=== PATIENT | female | born 1980 | race African-American/Black ===

== ENCOUNTER 2017-05-30 12:22 | Emergency (ER) | payer MEDICAID, SELFPAY ==
[~2017-05-30] VITALS: Ht 172.7 cm; Wt 126.3 kg
[2017-05-30] MEDS ORDERED: SODIUM CHLORIDE 0.9% 1,000ML IVBOLUS ONE (13:00)
[2017-05-30 13:23] LABS: HEMATOCRIT 27.5 % (34.6-47.8); HEMOGLOBIN 8.6 g/dL (11.7-16.4); WHITE BLOOD COUNT 3.5 x10^3/uL (3.4-10)
[2017-05-30 13:26] LABS: RAPID INFLUENZA A Negative (Negative); RAPID INFLUENZA B Negative (Negative)
[2017-05-30 13:33] LABS: BLOOD UREA NITROGEN 8 mg/dL (7-18)
[2017-05-30] MEDS ORDERED: POTASSIUM CHLORIDE 20 MEQ TAB.ER.PRT ONE (14:30)
[2017-05-30] MEDS ORDERED: POTASSIUM CHLORIDE 20 MEQ TAB.ER.PRT PO ONE (14:30)
[2017-05-30 15:20] VITALS: BP 124/74
== END 2017-05-30 15:36 | disposition home or self-care (01) ==
LOC: ED 14:03
DX: B34.9 Viral infection, unspecified (principal); D50.9 Iron deficiency anemia, unspecified; E87.6 Hypokalemia
CPT/HCPCS: 36415; 71020; 80048; 82040; 85025; 87400; 93005; 96360; 96361; 99285; J7030

== ENCOUNTER 2017-11-06 10:39 | Emergency (ER) | payer MEDICAID ==
[~2017-11-06] VITALS: Ht 172.7 cm; Wt 113.9 kg
[2017-11-06] MEDS ORDERED: SODIUM CHLORIDE FLUSH 10ML SYR IVF ONE (11:30)
[2017-11-06] MEDS ORDERED: SODIUM CHLORIDE 0.9% 1,000ML IV ONE (11:30)
[2017-11-06] MEDS ORDERED: ONDANSETRON ODT 4 MG PO ONE (11:30)
[2017-11-06 12:00] LABS: ALANINE AMINOTRANSFERASE 22 U/L (12-78); ALBUMIN 3.6 g/dL (3.4-5.0); ANION GAP 8 mmol/L (5-15); CALCIUM 8.8 mg/dL (8.5-10.1); CHLORIDE 108 mmol/L (98-107); CREATININE 1.01 mg/dL (0.55-1.02)
[2017-11-06 12:02] LABS: ALKALINE PHOSPHATASE 83 U/L (45-117); BILIRUBIN,TOTAL 0.5 mg/dL (0.2-1.0); TOTAL PROTEIN 8.1 g/dL (6.4-8.2)
[2017-11-06 12:04] LABS: CULTURE INDICATED? YES; MICROSCOPIC INDICATED
[2017-11-06] MEDS ORDERED: MORPHINE SULFATE 4 MG/ML, 1ML ONE ×2 (12:04→12:45)
[2017-11-06] MEDS ORDERED: ONDANSETRON ODT 4 MG ONE (12:04)
[2017-11-06 12:13] LABS: MEAN CORPUSCULAR HEMOGLOBIN 19.6 pg (27.0-34.8); MEAN CORPUSCULAR HGB CONC 30.9 g/dL (32.4-35.8); MEAN CORPUSCULAR VOLUME 63.3 fL (80-100); MEAN PLATELET VOLUME 9.4 fL (7.4-10.4); PLATELET COUNT 422 x10^3/uL (130-400); RED BLOOD COUNT 4.67 x10^6/uL (3.82-5.3); RED CELL DISTRIBUTION WIDTH 19.5 % (9.6-15.2)
[2017-11-06] MEDS: MORPHINE SULFATE 4 MG/ML, 1ML IVPush PRN ×2 (12:14→12:47)
[2017-11-06 12:15] LABS: MD YES
[2017-11-06 12:17] LABS: EOS#(MANUAL) 0.06 x10^3/uL (0.0-0.4); EOS% (MANUAL) 1 % (1-7); LYMPHS% (MANUAL) 31 % (22-44); MONOS#(MANUAL) 0.17 x10^3/uL (0.3-2.7); MONOS% (MANUAL) 3 % (2-9); SEG#(MANUAL) 3.77 x10^3/uL (1.8-6.8); SEGS% (MANUAL) 65 % (42-75)
[2017-11-06 12:18] LABS: <PLATELET ESTIMATE> INCREASED; <PLT MORPHOLOGY> NORMAL PLT MORPH; ANISOCYTOSIS 1+; MICROCYTOSIS 2+; POLYCHROMASIA 1+
[2017-11-06] MEDS ORDERED: CEFTRIAXONE 1,000 MG IM ONE (14:00)
[2017-11-06] MEDS ORDERED: POTASSIUM CHLORIDE 20 MEQ TAB.ER.PRT PO ONE (14:00)
[2017-11-06] MEDS ORDERED: POTASSIUM CHLORIDE 20 MEQ TAB.ER.PRT ONE (14:07)
[2017-11-06] MEDS ORDERED: CEFTRIAXONE PMX 1GM/50ML 50 ML ONE (14:07)
[2017-11-06 14:12] VITALS: BP 117/78
== END 2017-11-06 15:12 | disposition home or self-care (01) ==
LOC: ED 14:42
DX: N10 Acute pyelonephritis (principal); D50.9 Iron deficiency anemia, unspecified; Z90.49 Acquired absence of other specified parts of digestive tract
CPT/HCPCS: 36415; 74176; 80053; 81001; 83605; 83690; 85025; 87086; 96361; 96372; 96374; 96376; 99285; J0696; J7030; Q0162

== ENCOUNTER 2018-03-30 18:11 | Emergency (ER) | payer SELFPAY ==
[~2018-03-30] VITALS: Ht 170.2 cm; Wt 107.6 kg
[~2018-03-30 18:11] MED LIST: ACET325T14 PO; CYCL-259 PO; IBUP-1223 PO
[2018-03-30 18:19] VITALS: BP 141/98
[2018-03-30 18:51] LABS: ALANINE AMINOTRANSFERASE 29 U/L (12-78); ALBUMIN 3.3 g/dL (3.4-5.0); ANION GAP 6 mmol/L (5-15); CALCIUM 8.9 mg/dL (8.5-10.1); CHLORIDE 109 mmol/L (98-107); CREATININE 0.76 mg/dL (0.55-1.02)
[2018-03-30 19:00] LABS: ALKALINE PHOSPHATASE 70 U/L (45-117); BILIRUBIN,TOTAL 0.2 mg/dL (0.2-1.0); TOTAL PROTEIN 7.4 g/dL (6.4-8.2)
[2018-03-30 19:43] LABS: MD YES; MEAN CORPUSCULAR HEMOGLOBIN 23.8 pg (27.0-34.8); MEAN CORPUSCULAR HGB CONC 32.1 g/dL (32.4-35.8); MEAN CORPUSCULAR VOLUME 74.2 fL (80-100); PLATELET COUNT 314 x10^3/uL (130-400); RED CELL DISTRIBUTION WIDTH 23.1 % (9.6-15.2)
[2018-03-30 19:59] LABS: BASOS#(MANUAL) 0.06 x10^3/uL (0-0.1); BASOS% (MANUAL) 1 % (0-1); LYMPH#(MANUAL) 1.66 x10^3/uL (1-3.4); LYMPHS% (MANUAL) 26 % (22-44); MONOS#(MANUAL) 0.58 x10^3/uL (0.3-2.7); MONOS% (MANUAL) 9 % (2-9); REACTIVE LYMPHS # (MANUAL) 0.06 x10^3/uL (0-0); REACTIVE LYMPHS % (MANUAL) 1 % (0-0); SEG#(MANUAL) 4.03 x10^3/uL (1.8-6.8); SEGS% (MANUAL) 63 % (42-75)
[2018-03-30 20:01] LABS: ANISOCYTOSIS 1+; HYPOCHROMIA 1+; MICROCYTOSIS 2+; POLYCHROMASIA 2+
[2018-03-30 20:02] LABS: <PLATELET ESTIMATE> ADEQUATE; LARGE PLATELETS 1+
[2018-03-30 20:03] LABS: CULTURE INDICATED? YES; MICROSCOPIC INDICATED
== END 2018-03-30 20:54 | disposition home or self-care (01) ==
LOC: ED 20:43
DX: K21.9 Gastro-esophageal reflux disease without esophagitis (principal); N39.0 Urinary tract infection, site not specified; Z90.49 Acquired absence of other specified parts of digestive tract
CPT/HCPCS: 36415; 80053; 81001; 83690; 84703; 85025; 86677; 87086; 99284

== ENCOUNTER 2018-11-25 16:12 | Emergency (ER) | payer MEDICAID ==
[~2018-11-25] VITALS: Ht 175.3 cm; Wt 103.0 kg
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
--- NOTE | 2018-11-25 16:54 | NUR ---
Dr. Miller at bedside to evaluate pt.
[2018-11-25 17:16] VITALS: BP 125/71
--- NOTE | 2018-11-25 17:16 | NUR ---
Patient/Caregiver given discharge instructions and they have confirmed that they understand the instructions. Patient ambulatory with steady gait.
== END 2018-11-25 17:18 | disposition home or self-care (01) ==
LOC: ED 17:12
DX: S50.12XA Contusion of left forearm, initial encounter (principal); K21.9 Gastro-esophageal reflux disease without esophagitis; R07.89 Other chest pain; V17.4XXA Pedal cycle driver injured in collision with fixed or stationary object in traffic accident, initial encounter; Y93.89 Activity, other specified; Y92.410 Unspecified street and highway as the place of occurrence of the external cause; Y99.8 Other external cause status
CPT/HCPCS: 71046; 93005; 99283

== ENCOUNTER 2019-03-31 19:48 | Emergency (ER) | payer MEDICAID, OTHER ==
[~2019-03-31] VITALS: Ht 172.7 cm; Wt 107.3 kg
[2019-03-31 19:52] VITALS: BP 123/54
== END 2019-03-31 20:49 | disposition home or self-care (01) ==
LOC: ED 20:38
DX: M25.512 Pain in left shoulder (principal); K21.9 Gastro-esophageal reflux disease without esophagitis; F17.210 Nicotine dependence, cigarettes, uncomplicated
CPT/HCPCS: 99283